=== PATIENT | female | born 1990 | race Caucasian/White ===

== ENCOUNTER → 2020-05-25 | Outpatient (CLI) | payer OTHER ==
[~2020-05-25] MED LIST: BENADRYL25 MG PO; CYCLAFEM PO
== END ==
LOC: LAB 09:52
PROVIDERS: Obstetrics & Gynecology
DX: Z01.419 Encounter for gynecological examination (general) (routine) without abnormal findings (principal)
CPT/HCPCS: G0123

== ENCOUNTER 2020-12-14 11:16 | Day surgery (SDC) | payer OTHER, SELFPAY ==
[~2020-12-14] VITALS: Ht 170.2 cm; Wt 80.4 kg
[~2020-12-14 11:16] MED LIST changes: -BENADRYL25 MG PO
[2020-12-14] MEDS ORDERED: BENADRYL25 MG PO (12:02)
--- NOTE | 2020-12-14 12:22 | NUR ---
12/14/20 1222 Janice Minaya OFFLINE AT THIS TIME. SCOPOLAMINE PATCH PLACED BEHIND LEFT EAR PER DR. CORTES'S ORDER. EDUCATED ON USE. PT VERBALIZES UNDERSTANDING.
--- NOTE | 2020-12-14 13:15 | NUR ---
12/14/20 1315 Krishna Mccarthy ABDOMEN PREPPED BY [facility].JAC[facility]
== END 2020-12-14 14:50 | disposition home or self-care (01) ==
LOC: ORSCSDS 11:16
PROVIDERS: Obstetrics & Gynecology
PROC: 0U5F4ZZ Destruction of Cul-de-sac, Percutaneous Endoscopic Approach (ICD-10-PCS; principal; 2020-12-14 12:30)
DX: N80.3 Endometriosis of pelvic peritoneum (principal)
CPT/HCPCS: 88305; A9270; J0171; J1100; J1885; J2250; J2405; J2704; J3010; J7120